=== PATIENT | female | born 1965 | race African-American/Black ===

== ENCOUNTER 2017-11-03 19:34 | Emergency (ER) | payer OTHER ==
[~2017-11-03] VITALS: Ht 157.5 cm; Wt 68.0 kg
[~2017-11-03 19:34] MED LIST: IBUPROFEN 600600 M1 PO; TYLENOL PM EX-1 EACH PO
[2017-11-03] MEDS ORDERED: [UNRECOGNIZED DRUG - OTHER] (19:41)
[2017-11-03] MEDS ORDERED: NORFLEX100 MG PO (20:27)
[2017-11-03] MEDS ORDERED: TRAMADOL 50 MG50 MG PO (20:27)
== END 2017-11-03 20:32 | disposition home or self-care (01) ==
LOC: ER 19:34
DX: M54.5 Low back pain (principal)